=== PATIENT | male | born 1940 | race Caucasian/White ===

== ENCOUNTER → 2021-02-07 | Outpatient (CLI) | payer MEDICARE, OTHER ==
[2015-05-09 12:35] VITALS: BP 120/74
[~2021-02-07] MED LIST: ASPI-482 PO; ATOR10TA PO; FINA5TAB4 PO; METO25TA2 PO; RAMI2.5C24 PO
--- NOTE | 2021-02-08 05:21 | RAD ---
EXAMINATION: XR CHEST 2V CLINICAL HISTORY: Cough x2 weeks EXAM DATE/TIME: 02/07/2021 4:24 PM COMPARISON: 11/11/2012 FINDINGS: Lines, Tubes, and Devices: None. Cardiomediastinal Silhouette: Normal heart size. Aortic atherosclerotic calcification. Lungs and Pleura: Mild patchy opacities in the bilateral lower lung zones. No evidence of pleural eff usion. Pulmonary vasculature unremarkable. Bones and Soft Tissues: Degenerative changes of the thoracic spine. Median sternotomy wires. IMPRESSION: Mild patchy airspace disease bilateral lower lung zones. Electronically signed by: Bola Martinez DO (02/08/2021 5:19 AM) [facility]
== END ==
LOC: RAD 16:19
PROVIDERS: ATTEND Specialist
DX: R91.8 Other nonspecific abnormal finding of lung field (principal)
CPT/HCPCS: 71046